=== PATIENT | female | born 1935 | race Caucasian/White ===

== ENCOUNTER 2020-06-07 23:36 | Inpatient (IN) ==
[2020-06-07] MEDS ORDERED: NS 0.9% 1000 ml BAG 1,000 ML IV ONE (23:42)
[2020-06-08] MEDS ORDERED: Iodixanol (CONTRAST) 320 MG/ML 100 ML SDV IV ONE (00:03)
[2020-06-08 00:14] LABS: Hematocrit 33 % (35-47); Hemoglobin 10.9 g/dL (12.0-16.0); Mean Corpuscular HGB Conc 33 g/dL (31-36); Mean Corpuscular Hemoglobin 30 pg (27-31); Mean Corpuscular Volume 92 fL (80-97); Mean Platelet Volume 7.1 fL (7.4-10.4); Platelet Count 166 10^3/uL (150-450); Red Blood Count 3.58 10^6 /uL (3.70-4.87); Red Cell Distribution Width 14 % (10-15); White Blood Count 16.8 10^3/uL (3.5-10.8)
[2020-06-08 00:33] LABS: ALT 5 U/L (7-52); AST 17 U/L (13-39); Albumin 2.8 g/dL (3.2-5.2); Albumin/Globulin Ratio 0.8 (1-3); Alkaline Phosphatase 94 U/L (34-104); Anion Gap 6 mmol/L (2-11); BUN/Creatinine Ratio 16.5 (8-20); Blood Urea Nitrogen 17 mg/dL (6-24); CO2 Carbon Dioxide 26 mmol/L (22-32); Calcium 7.9 mg/dL (8.6-10.3); Chloride 101 mmol/L (101-111); Cholesterol 102 mg/dL; EGFR African American 61.9 (>60); EGFR Non-African American 51.2 (>60); Globulin 3.7 g/dL (2-4); Glucose 103 mg/dL (70-100); HDL Cholesterol 29.6 mg/dL; LDL Cholesterol 52 mg/dL; Potassium 4.2 mmol/L (3.5-5.0); Sodium 133 mmol/L (135-145); Total Protein 6.5 g/dL (6.4-8.9); Triglycerides 100 mg/dL
[2020-06-08 00:36] LABS: Activated Partial Thrombo Time 20.1 seconds (26.0-38.0); INR 1.09 (0.82-1.09)
[2020-06-08 00:41] LABS: Troponin I 0.03 ng/mL (<0.03)
[2020-06-08] MEDS ORDERED: methylPREDNISolone SOD 40 mg/ml 1 ml VIAL IV ONE (00:53)
[2020-06-08 01:09] LABS: ABS Basophils 0.1 10^3/ul (0-0.2); ABS Lymphocytes 0.9 10^3/ul (1.0-4.8); ABS Monocytes 0.7 10^3/ul (0-0.8); ABS Neutrophils 15.1 10^3/ul (1.5-7.7); Eosinophil % 0.2 %; Lymphocyte % 5.2 %
[2020-06-08] MEDS ORDERED: Albuterol/Ipratropium NEB.SOL (2.5/0.5 MG) 3 ML NEB.SOLN INH ONE (01:26)
[2020-06-08 02:20] LABS: Urine Appearance Cloudy; Urine Bilirubin Negative (Negative); Urine Blood Negative (Negative); Urine Color Yellow; Urine Glucose Negative (Negative); Urine Ketones Negative (Negative); Urine Nitrite Negative (Negative); Urine Protein Negative (Negative); Urine Urobilinogen Negative (Negative)
[2020-06-08] MEDS ORDERED: Albuterol 2.5mg/3 ml (0.083%) NEB.SOLN INH PRN (03:34)
[2020-06-08] MEDS ORDERED: cefTRIAXone 1 gm/50 mL NS BAG 1 GM/50 ML BAG IVPB SCH (03:35)
[2020-06-08] MEDS ORDERED: Azithromycin 500 mg/250 ml NS 500 MG/250 ML BAG IVPB SCH ×2 (04:00→06:00)
[2020-06-08] MEDS ORDERED: Albuterol/Ipratropium NEB.SOL (2.5/0.5 MG) 3 ML NEB.SOLN INH SCH (04:00)
[2020-06-08 04:05] LABS: C Reactive Protein 31.94 mg/L (<8.01)
[2020-06-08 05:00] LABS: Troponin I 0.12 ng/mL (<0.03)
[2020-06-08 05:03] LABS: Erythrocyte Sed Rate 110 mm/Hr (0-29)
[2020-06-08] MEDS ORDERED: Heparin 5000 UNITS/ML 1 mL VIAL SUBCUT SCH ×2 (06:00→10:00)
[2020-06-08] MEDS ORDERED: Meropenem 1 GM PREMIX 1 GM/50 ML BAG IV SCH (06:30)
[2020-06-08 07:34] LABS: BUN/Creatinine Ratio 17.2 (8-20); Blood Urea Nitrogen 17 mg/dL (6-24); CO2 Carbon Dioxide 25 mmol/L (22-32); Calcium 7.6 mg/dL (8.6-10.3); Chloride 106 mmol/L (101-111); Cholesterol 91 mg/dL; EGFR African American 64.8 (>60); EGFR Non-African American 53.6 (>60); Glucose 99 mg/dL (70-100); HDL Cholesterol 31.1 mg/dL; LDL Cholesterol 47 mg/dL; Sodium 136 mmol/L (135-145); Triglycerides 66 mg/dL
[2020-06-08 07:56] LABS: Troponin I 0.76 ng/mL (<0.03)
[2020-06-08] MEDS: NS 0.9% 1000 ml BAG 1,000 ML IV SCH ×2 (08:29→21:03)
[2020-06-08 08:42] LABS: Anion Gap 5 mmol/L (2-11)
[2020-06-08] MEDS ORDERED: Heparin DRIP 25,000 UNITS BAG 25,000 UNITS/500 ML BAG IV SCH (09:15)
[2020-06-08] MEDS: Heparin 5000 UNITS/ML 1 mL VIAL IV SCH ×2 (10:23→17:34)
[2020-06-08 10:25] LABS: Troponin I 1.51 ng/mL (<0.03)
[2020-06-08] MEDS: Mometasone/Formoter 200/5 MDI INH SCH ×2 (10:27→21:08)
[2020-06-08] MEDS: Nicotine PATCH 21 MG/24 HR PATCH TRANSDERM SCH (10:27)
[2020-06-08 13:28] LABS: Troponin I 1.86 ng/mL (<0.03)
[2020-06-08 16:15] LABS: Troponin I 2.12 ng/mL (<0.03)
[2020-06-08] MEDS: Meropenem 1 GM PREMIX 1 GM/50 ML BAG IV SCH (21:04)
[2020-06-09 01:40] LABS: BUN/Creatinine Ratio 21.4 (8-20); Calcium 7.7 mg/dL (8.6-10.3); EGFR African American 65.6 (>60); EGFR Non-African American 54.2 (>60); Magnesium 1.6 mg/dL (1.9-2.7); Potassium 3.5 mmol/L (3.5-5.0)
[2020-06-09] MEDS: NS 0.9% 1000 ml BAG 1,000 ML IV SCH ×2 (05:17→13:25)
[2020-06-09] MEDS: Azithromycin 500 mg/250 ml NS 500 MG/250 ML BAG IVPB SCH (06:01)
[2020-06-09 06:49] LABS: ABS Basophils 0.1 10^3/ul (0-0.2); ABS Eosinophils 0.1 10^3/ul (0-0.6); ABS Lymphocytes 1.4 10^3/ul (1.0-4.8); ABS Monocytes 0.7 10^3/ul (0-0.8); ABS Neutrophils 10.7 10^3/ul (1.5-7.7); Eosinophil % 0.4 %; Hematocrit 30 % (35-47); Hemoglobin 10.2 g/dL (12.0-16.0); Lymphocyte % 10.6 %; Mean Corpuscular HGB Conc 34 g/dL (31-36); Mean Corpuscular Hemoglobin 31 pg (27-31); Mean Corpuscular Volume 93 fL (80-97); Mean Platelet Volume 7.3 fL (7.4-10.4); Platelet Count 121 10^3/uL (150-450); Red Blood Count 3.24 10^6 /uL (3.70-4.87); Red Cell Distribution Width 14 % (10-15); White Blood Count 12.9 10^3/uL (3.5-10.8)
[2020-06-09 07:05] LABS: Anion Gap 5 mmol/L (2-11); BUN/Creatinine Ratio 20.8 (8-20); Blood Urea Nitrogen 20 mg/dL (6-24); CO2 Carbon Dioxide 25 mmol/L (22-32); Calcium 7.7 mg/dL (8.6-10.3); Chloride 107 mmol/L (101-111); EGFR African American 67.2 (>60); EGFR Non-African American 55.5 (>60); Glucose 88 mg/dL (70-100); Magnesium 1.5 mg/dL (1.9-2.7); Potassium 3.6 mmol/L (3.5-5.0); Sodium 137 mmol/L (135-145)
[2020-06-09 07:15] LABS: Troponin I 0.92 ng/mL (<0.03)
[2020-06-09] MEDS ORDERED: Regadenoson 0.4 MG/5 ML SYRINGE ONE (08:00)
[2020-06-09] MEDS ORDERED: Influenza VAC *QUAD* 2020-21* 0.5 ML SYRINGE IM ONE (09:00)
[2020-06-09] MEDS: Mometasone/Formoter 200/5 MDI INH SCH ×2 (09:26→19:51)
[2020-06-09] MEDS ORDERED: Perflutren Lipid Microsphere 3 ML VIAL ONE (11:46)
[2020-06-09] MEDS: Meropenem 1 GM PREMIX 1 GM/50 ML BAG IV SCH ×2 (11:53→23:10)
[2020-06-09] MEDS: Nicotine PATCH 21 MG/24 HR PATCH TRANSDERM SCH (12:50)
[2020-06-09] MEDS ORDERED: Magnesium Sulf 4 GM/100 ML IV 4,000 MG/100 ML BAG IVPB ONE (13:04)
[2020-06-10] MEDS: NS 0.9% 1000 ml BAG 1,000 ML IV SCH (04:32)
[2020-06-10] MEDS: Azithromycin 500 mg/250 ml NS 500 MG/250 ML BAG IVPB SCH (05:14)
[2020-06-10 07:07] LABS: ABS Basophils 0.1 10^3/ul (0-0.2); ABS Eosinophils 0.1 10^3/ul (0-0.6); ABS Lymphocytes 1.1 10^3/ul (1.0-4.8); ABS Monocytes 0.7 10^3/ul (0-0.8); ABS Neutrophils 11.1 10^3/ul (1.5-7.7); Eosinophil % 0.6 %; Hematocrit 33 % (35-47); Hemoglobin 10.9 g/dL (12.0-16.0); Lymphocyte % 8.4 %; Mean Corpuscular HGB Conc 33 g/dL (31-36); Mean Corpuscular Hemoglobin 31 pg (27-31); Mean Corpuscular Volume 93 fL (80-97); Mean Platelet Volume 7.4 fL (7.4-10.4); Platelet Count 177 10^3/uL (150-450); Red Blood Count 3.56 10^6 /uL (3.70-4.87); Red Cell Distribution Width 14 % (10-15); White Blood Count 13.1 10^3/uL (3.5-10.8)
[2020-06-10 07:25] LABS: BUN/Creatinine Ratio 22.5 (8-20); Calcium 7.9 mg/dL (8.6-10.3); EGFR African American 73.3 (>60); EGFR Non-African American 60.6 (>60); Magnesium 2.4 mg/dL (1.9-2.7); Potassium 3.6 mmol/L (3.5-5.0)
[2020-06-10] MEDS: Nicotine PATCH 21 MG/24 HR PATCH TRANSDERM SCH (08:01)
[2020-06-10] MEDS: Meropenem 1 GM PREMIX 1 GM/50 ML BAG IV SCH ×2 (08:04→20:26)
[2020-06-10] MEDS: Mometasone/Formoter 200/5 MDI INH SCH ×2 (08:50→20:35)
[2020-06-10] MEDS: Heparin 5000 UNITS/ML 1 mL VIAL SUBCUT SCH (21:55)
[2020-06-11] MEDS: Azithromycin 500 mg/250 ml NS 500 MG/250 ML BAG IVPB SCH (06:19)
[2020-06-11] MEDS: Heparin 5000 UNITS/ML 1 mL VIAL SUBCUT SCH ×3 (06:21→22:16)
[2020-06-11] MEDS: Mometasone/Formoter 200/5 MDI INH SCH ×2 (08:16→19:36)
[2020-06-11] MEDS: Meropenem 1 GM PREMIX 1 GM/50 ML BAG IV SCH ×2 (10:06→20:58)
[2020-06-11] MEDS: Nicotine PATCH 21 MG/24 HR PATCH TRANSDERM SCH (10:10)
[2020-06-11] MEDS: Albuterol/Ipratropium NEB.SOL (2.5/0.5 MG) 3 ML NEB.SOLN INH SCH (18:07)
[2020-06-12 03:00] LABS: Calcium 8.4 mg/dL (8.6-10.3); Magnesium 2.1 mg/dL (1.9-2.7); Potassium 4.4 mmol/L (3.5-5.0)
[2020-06-12 03:06] LABS: BUN/Creatinine Ratio 22.1 (8-20); EGFR African American 76.3 (>60)
[2020-06-12] MEDS: Heparin 5000 UNITS/ML 1 mL VIAL SUBCUT SCH ×2 (05:54→14:09)
[2020-06-12] MEDS: Albuterol/Ipratropium NEB.SOL (2.5/0.5 MG) 3 ML NEB.SOLN INH SCH ×3 (07:34→16:17)
[2020-06-12] MEDS: Mometasone/Formoter 200/5 MDI INH SCH (07:49)
[2020-06-12] MEDS: Meropenem 1 GM PREMIX 1 GM/50 ML BAG IV SCH (07:59)
[2020-06-12] MEDS: Azithromycin 500 mg/250 ml NS 500 MG/250 ML BAG IVPB SCH (07:59)
[2020-06-12] MEDS: Nicotine PATCH 21 MG/24 HR PATCH TRANSDERM SCH (08:56)
[2020-06-12 16:19] VITALS: BP 148/62
== END 2020-06-12 17:30 | disposition home health service (06) | DRG 871 ==
LOC: ED 23:36 → MED 06-08 07:32 → MEDTELE 06-08 18:13
PROVIDERS: ADMIT Hospitalist; ATTEND Internal Medicine

== ENCOUNTER 2020-11-03 19:43 | Observation (INO) ==
[2020-11-03 20:43] LABS: ABS Basophils 0.1 10^3/ul (0-0.2); ABS Eosinophils 0.1 10^3/ul (0-0.6); ABS Lymphocytes 1.3 10^3/ul (1.0-4.8); ABS Monocytes 0.7 10^3/ul (0-0.8); ABS Neutrophils 7.8 10^3/ul (1.5-7.7); Eosinophil % 0.6 %; Hematocrit 32 % (35-47); Hemoglobin 10.7 g/dL (12.0-16.0); Lymphocyte % 12.9 %; Mean Corpuscular HGB Conc 33 g/dL (31-36); Mean Corpuscular Hemoglobin 31 pg (27-31); Mean Corpuscular Volume 95 fL (80-97); Nucleated Red Blood Cells % 0.1; Platelet Count 186 10^3/uL (150-450); Red Blood Count 3.42 10^6 /uL (3.70-4.87); Red Cell Distribution Width 15 % (10-15); White Blood Count 9.9 10^3/uL (3.5-10.8)
[2020-11-03 21:04] LABS: Troponin I 0.01 ng/mL (<0.03)
[2020-11-03 21:19] LABS: Albumin 2.8 g/dL (3.2-5.2); Albumin/Globulin Ratio 0.8 (1-3); BUN/Creatinine Ratio 17.9 (8-20); C Reactive Protein 25.25 mg/L (<8.01); Calcium 8.5 mg/dL (8.6-10.3); EGFR African American 78.2 (>60); EGFR Non-African American 64.6 (>60); Globulin 3.4 g/dL (2-4); Potassium 4.1 mmol/L (3.5-5.0); Total Bilirubin 0.4 mg/dL (0.2-1.0); Total Protein 6.2 g/dL (6.4-8.9)
[2020-11-03] MEDS ORDERED: Furosemide 20 mg/2 ml IV VIAL IV SLOW PU ONE (22:15)
[2020-11-04] MEDS ORDERED: Albuterol/Ipratropium NEB.SOL (2.5/0.5 MG) 3 ML NEB.SOLN INH PRN (01:05)
[2020-11-04] MEDS ORDERED: Albuterol HFA INHALER 8 gm MDI INH PRN ×2 (01:42→12:09)
[2020-11-04] MEDS: Albuterol/Ipratropium NEB.SOL (2.5/0.5 MG) 3 ML NEB.SOLN INH SCH ×3 (07:24→20:08)
[2020-11-04 07:30] LABS: ABS Basophils 0.1 10^3/ul (0-0.2); ABS Eosinophils 0.1 10^3/ul (0-0.6); ABS Monocytes 0.8 10^3/ul (0-0.8); ABS Neutrophils 7.5 10^3/ul (1.5-7.7); Eosinophil % 0.6 %; Hematocrit 35 % (35-47); Hemoglobin 11.5 g/dL (12.0-16.0); Lymphocyte % 10.6 %; Mean Corpuscular HGB Conc 33 g/dL (31-36); Mean Corpuscular Hemoglobin 31 pg (27-31); Mean Corpuscular Volume 96 fL (80-97); Mean Platelet Volume 7.2 fL (7.4-10.4); Nucleated Red Blood Cells % 0.1; Platelet Count 187 10^3/uL (150-450); Red Blood Count 3.65 10^6 /uL (3.70-4.87); Red Cell Distribution Width 15 % (10-15); White Blood Count 9.4 10^3/uL (3.5-10.8)
[2020-11-04 07:47] LABS: Anion Gap 4 mmol/L (2-11); BUN/Creatinine Ratio 15.2 (8-20); Blood Urea Nitrogen 14 mg/dL (6-24); CO2 Carbon Dioxide 37 mmol/L (22-32); Calcium 8.8 mg/dL (8.6-10.3); Chloride 99 mmol/L (101-111); EGFR African American 70.4 (>60); EGFR Non-African American 58.2 (>60); Glucose 79 mg/dL (70-100); Magnesium 1.6 mg/dL (1.9-2.7); Potassium 3.8 mmol/L (3.5-5.0); Sodium 140 mmol/L (135-145)
[2020-11-04] MEDS ORDERED: Magnesium Sulfate IV 3 GM in NS 0.9% 100 ml BAG 100 ML IVPB ONE (08:08)
[2020-11-04] MEDS: Heparin 5000 UNITS/ML 1 mL VIAL SUBCUT SCH ×2 (08:46→21:11)
[2020-11-04] MEDS: Nicotine PATCH 14 MG/24 HR PATCH TRANSDERM SCH (10:00)
[2020-11-04 10:35] LABS: Prealbumin < 3 mg/dL (18-38)
[2020-11-05] MEDS: Albuterol/Ipratropium NEB.SOL (2.5/0.5 MG) 3 ML NEB.SOLN INH SCH ×3 (00:46→13:46)
[2020-11-05 06:24] LABS: ABS Eosinophils 0.1 10^3/ul (0-0.6); ABS Neutrophils 6.7 10^3/ul (1.5-7.7); Eosinophil % 0.6 %; Hematocrit 33 % (35-47); Hemoglobin 10.8 g/dL (12.0-16.0); Lymphocyte % 11.7 %; Mean Corpuscular HGB Conc 33 g/dL (31-36); Mean Corpuscular Hemoglobin 31 pg (27-31); Mean Corpuscular Volume 97 fL (80-97); Mean Platelet Volume 7.6 fL (7.4-10.4); Platelet Count 178 10^3/uL (150-450); Red Blood Count 3.44 10^6 /uL (3.70-4.87); Red Cell Distribution Width 15 % (10-15); White Blood Count 8.8 10^3/uL (3.5-10.8)
[2020-11-05 06:43] LABS: Calcium 8.6 mg/dL (8.6-10.3); EGFR African American 73.1 (>60); EGFR Non-African American 60.4 (>60); Magnesium 2.3 mg/dL (1.9-2.7); Potassium 4.1 mmol/L (3.5-5.0)
[2020-11-05] MEDS: Nicotine PATCH 14 MG/24 HR PATCH TRANSDERM SCH ×2 (08:31→08:35)
[2020-11-05] MEDS: Heparin 5000 UNITS/ML 1 mL VIAL SUBCUT SCH ×2 (08:31→21:04)
[2020-11-06] MEDS: Heparin 5000 UNITS/ML 1 mL VIAL SUBCUT SCH (10:13)
[2020-11-06] MEDS: Nicotine PATCH 14 MG/24 HR PATCH TRANSDERM SCH (10:14)
[2020-11-06 13:09] LABS: Urine Appearance Cloudy; Urine Bilirubin Negative (Negative); Urine Blood Negative (Negative); Urine Color Yellow; Urine Glucose Negative (Negative); Urine Ketones Negative (Negative); Urine Nitrite Negative (Negative); Urine Protein 1+(30 mg/dL) (Negative); Urine Urobilinogen Negative (Negative)
[2020-11-06 13:13] VITALS: BP 106/37
[2020-11-06 13:14] LABS: Urine Bacteria Absent (Absent); Urine Red Blood Cell Trace(0-2/hpf) (Absent); Urine Squamous Epithelial Cell Present (Absent); Urine White Blood Cell Trace(0-5/hpf) (Absent)
== END 2020-11-06 14:05 | disposition hospice, home (50) ==
LOC: MEDTELE 19:43 → ED 19:43
PROVIDERS: ADMIT Internal Medicine; ATTEND Pediatrics